=== PATIENT | female | born 1940 | race Caucasian/White ===

== ENCOUNTER → 2017-05-07 | Outpatient (CLI) | payer MEDICARE, BC ==
--- NOTE | 2017-05-07 17:17 | US ---
EXAMINATION TYPE: US thyroid st tissue head/neck DATE OF EXAM: 05/07/2017 COMPARISON: NONE CLINICAL HISTORY: R10.13 Dysphagia. Dysphagia GLAND SIZE: Right Lobe: 4.8 x 1.7 x 1.8 cm Overall Parenchyma: heterogenous Left Lobe: 4.6 x 1.1 x 1.5 cm Overall Parenchyma: heterogeneous Isthmus Thickness: cm NODULES RIGHT: # of nodules measured on right: 1 1. 1.2 X .7 x .8 cm hypoechoic mixed nodule at the mid pole with well-defined margins;. This nodul e is wider than tall and shows intranodular vascularity. LEFT: # of nodules measured on left: ISTHMUS: # of nodules measured in the isthmus: 0 1. X x cm nodule at the pole with margins; . This nodule is and shows . Prior size: x x cm Bilateral neck scanned, no evidence of lymphadenopathy. Bilateral nodules seen measured largest on the right lobe. Left lobe nodule <1cm. IMPRESSION: The exam shows 2 complex cysts in the right thyroid lobe in the largest measures 12 x 7 mm. There is heterogeneity in both thyroid lobes. There are hypoechoic nodules in the left thyroid lobe that measu re up to 4 mm. There is no dominant thyroid mass. I have low suspicion of malignancy.
== END | disposition home or self-care (01) ==
LOC: RADUSWWP 16:39
PROVIDERS: ATTEND Family Medicine
DX: E04.2 Nontoxic multinodular goiter (principal)
CPT/HCPCS: 76536

== ENCOUNTER → 2017-08-27 | Outpatient (CLI) | payer MEDICARE, BC | END | disposition home or self-care (01) | LOC: LABWHC1 14:47 | PROVIDERS: ATTEND Otolaryngology | DX: E04.1 Nontoxic single thyroid nodule (principal) | CPT/HCPCS: 36415; 86376; 86800 ==

== ENCOUNTER → 2018-03-05 | Outpatient (CLI) | payer MEDICARE, BC ==
--- NOTE | 2018-03-05 14:06 | US ---
EXAMINATION TYPE: US thyroid st tissue head/neck DATE OF EXAM: 03/05/2018 COMPARISON: US 09-03-2017 CLINICAL HISTORY: E04.1 Thyroid Nodule. Follow up thyroid nodules GLAND SIZE: Right Lobe: 4.9 x 1.4 x 1.7 cm Overall Parenchyma: heterogenous Left Lobe: 4.2 x 1.4 x 1.5 cm Overall Parenchyma: heterogeneous Isthmus Thickness: 0.2 cm NODULES RIGHT: # of nodules measured on right: 3 1. 1.4 X 0.9 x 0.9 cm hypoechoic mixed nodule at the mid pole with well-defined margins. This nodul e is taller than wide and shows intranodular vascularity. 2. 1.1 X 0.9 x 0.7 cm hypoechoic mixed nodule at the mid pole with well-defined margins. This nodule is taller than wide and shows intranodular vascularity. 3. 0.7 X 0.4 x 0.7 cm hypoechoic mixed nodule at the lower pole with well-defined margins. This nodu le is wider than tall and shows no intranodular vascularity. Prior size: 0.5 x 0.4 x 0.3 cm LEFT: # of nodules measured on left: 2 1. 0.5 X 0.4 x 0.5 cm hypoechoic mixed nodule at the mid pole with well-defined margins. This nodul e is wider than tall and shows no intranodular vascularity. 2. 0.5 X 0.4 x 0.5 cm hypoechoic solid nodule at the mid pole with well-defined margins. This nodule is wider than tall and shows intranodular vascularity. ISTHMUS: # of nodules measured in the isthmus: 0 Bilateral neck scanned, no evidence of lymphadenopathy. Heterogeneous multinodular normal-sized thyroid is redemonstrated without significant interval change accounting for technical change. IMPRESSION: Overall stable findings, heterogeneous multinodular normal-sized thyroid gland redemonstrated.
== END | disposition home or self-care (01) ==
LOC: RADUSWWP 13:09
PROVIDERS: ATTEND Otolaryngology
DX: E04.2 Nontoxic multinodular goiter (principal)
CPT/HCPCS: 76536

== ENCOUNTER → 2018-06-23 | Outpatient (CLI) | payer MEDICARE, BC ==
--- NOTE | 2018-06-23 16:04 | US ---
EXAMINATION TYPE: US carotid duplex BILAT DATE OF EXAM: 06/23/2018 COMPARISON: NONE CLINICAL HISTORY: R94.31 Abnormal EKG,. EXAM MEASUREMENTS: RIGHT: Peak Systolic Velocity (PSV) cm/sec ----- Right CCA: 59.0 ----- Right ICA: 101.4 ----- Right ECA: 55.4 ICA/CCA ratio: 1.7 RIGHT: End Diastole cm/sec ----- Right CCA: 15.4 ----- Right ICA: 38.0 ----- Right ECA: 6.8 LEFT: Peak Systolic Velocity (PSV) cm/sec ----- Left CCA: 57.3 ----- Left ICA: 96.6 ----- Left ECA: 45.7 ICA/CCA ratio: 1.7 LEFT: End Diastole cm/sec ----- Left CCA: 17.0 ----- Left ICA: 12.1 ----- Left ECA: 14.6 VERTEBRALS (direction of flow): Right Vertebral: Antegrade Left Vertebral: Antegrade Rhythm: Normal No significant velocity elevations, mild atherosclerotic changes. Grayscale, color Doppler, spectral Doppler imaging performed of the carotid arteries. IMPRESSION: No hemodynamic significant stenosis of the proximal internal carotid arteries bilaterall y by Doppler criteria, an indirect measurement of carotid stenosis
--- NOTE | 2018-06-25 12:08 | ECHOF ---
Referral Reason:R94.31 Abnormal EKG, MEASUREMENTS -------- HEIGHT: 152.4 cm WEIGHT: 52.2 kg BP: RVIDd: 2.5 cm (< 3.3) IVSd: 0.8 cm (0.6 - 1.1) LVIDd: 3.8 cm (3.9 - 5.3) LVPWd: 0.8 cm (0.6 - 1.1) IVSs: 1.1 cm LVIDs: 2.7 cm LVPWs: 1.2 cm LAESV Index (A-L): 34.30 ml/m Ao Diam: 3.0 cm (2.0 - 3.7) AV Cusp: 1.4 cm (1.5 - 2.6) LA Diam: 3.7 cm (2.7 - 3.8) MV EXCURSION: 14.382 mm (> 18.000) MV EF SLOPE: 85 mm/s (70 - 150) EPSS: 0.2 cm MV E Hayden: 1.07 m/s MV DecT: 201 ms MV A Hayden: 1.27 m/s MV E/A Ratio: 0.84 RAP: 5.00 mmHg RVSP: 42.51 mmHg FINDINGS -------- Sinus rhythm. This was a technically good study. Pt. Has Breast inplants The left ventricular size is normal. Left ventricular wall thickness is normal. Overall left vent ricular systolic function is normal with, an EF between 55 - 60 %. The right ventricle is normal in size and function. LA is moderately dilated 34-39 ml/m2 RA appears enlarged. Aortic valve is trileaflet and is mildly thickened. There is no evidence of aortic regurgitation. There is no evidence of aortic stenosis. The mitral valve leaflets are mildly thickened. Mild mitral annular calcification present. Mild m itral regurgitation is present. [id number] tricuspid regurgitation present. There is mild pulmonary hypertension. The right ventricular systolic pressure, as measured by Doppler, is 42.51mmHg. The pulmonic valve was not well visualized. The aortic root size is normal. Normal inferior vena cava with normal inspiratory collapse consistent with estimated right atrial pre ssure of 5 mmHg. There is no pericardial effusion. CONCLUSIONS -------- 1. Sinus rhythm. 2. This was a technically good study. 3. Pt. Has Breast inplants 4. The left ventricular size is normal. 5. Left ventricular wall thickness is normal. 6. Overall left ventricular systolic function is normal with, an EF between 55 - 60 %. 7. LA is moderately dilated 34-39 ml/m2 8. RA appears enlarged. 9. Aortic valve is trileaflet and is mildly thickened. 10. The mitral valve leaflets are mildly thickened. 11. Mild mitral annular calcification present. 12. Mild mitral regurgitation is present. 13. [id number]-[id number] tricuspid regurgitation present. 14. There is mild pulmonary hypertension. 15. The right ventricular systolic pressure, as measured by Doppler, is 42.51mmHg. 16. The pulmonic valve was not well visualized. 17. The aortic root size is normal. 18. There is no pericardial effusion. LAYOUT ARTIST: Sunil Garcia RDCS
== END | disposition home or self-care (01) ==
LOC: RADECHMAIN 14:40
PROVIDERS: ATTEND Family Medicine
DX: R09.89 Other specified symptoms and signs involving the circulatory and respiratory systems (principal); R94.31 Abnormal electrocardiogram [ECG] [EKG]
CPT/HCPCS: 93306; 93880

== ENCOUNTER → 2018-08-26 | Outpatient (CLI) | payer MEDICARE, BC ==
--- NOTE | 2018-08-26 15:22 | US ---
EXAMINATION TYPE: US thyroid st tissue head/neck DATE OF EXAM: 08/26/2018 COMPARISON: 02/2018 CLINICAL HISTORY: E04.1 Thyroid Nodule. GLAND SIZE: Right Lobe: 4.5 x 1.3 x 1.8 cm Overall Parenchyma: heterogenous Left Lobe: 4.3 x1.0 x 1.5 cm Overall Parenchyma: heterogeneous Isthmus Thickness: 0.2 cm NODULES RIGHT: # of nodules measured on right: 3 1. 1.0 X 0.8 x 0.5 cm mixed nodule at the mid pole with well-defined margins; . This nodule is soni ler than wide and shows intranodular vascularity. Prior size: 1.4 x 0.9 x 0.8 cm 2. 0.5 X 0.6 x 0.4 cm mixed nodule at the mid pole with well-defined margins; . This nodule is tall er than wide and shows intranodular vascularity. Prior size: 1.1 x 0.9 x 0.7 cm 3. 0.7 X 0.6 x 0.3 cm mixed nodule at the lower pole with well-defined margins; . This nodule is wi alem than tall and shows no intranodular vascularity. Prior size: 0.5 x 0.4 x 0.3 cm LEFT: # of nodules measured on left: 2 1. 0.5 X 0.4 x 0.4 cm mixed nodule at the mid pole with well-defined margins; . This nodule is wid er than tall and shows no intranodular vascularity. Prior size: 0.5 x 0.4 x 0.5 cm 2. 0.6 X 0.5 x 0.8 cm solid nodule at the upper pole with well-defined margins; . This nodule is wi alem than tall and shows intranodular vascularity. Prior size: 0.5 x 0.4 x 0.5 cm ISTHMUS: # of nodules measured in the isthmus: 0 Bilateral neck scanned, no evidence of lymphadenopathy. Heterogeneous normal-sized thyroid with scattered small nodules redemonstrated. No significant interv al change. IMPRESSION: Overall stable findings, no new suspicious greater than 1 cm nodule seen.
== END | disposition home or self-care (01) ==
LOC: RADUSWWP 14:10
PROVIDERS: ATTEND Otolaryngology
DX: E04.2 Nontoxic multinodular goiter (principal)
CPT/HCPCS: 76536

== ENCOUNTER → 2019-02-23 | Outpatient (CLI) | payer MEDICARE, BC ==
--- NOTE | 2019-02-23 10:37 | XR ---
Bilateral hips HISTORY: Pain 2 views of each hip submitted on a total of 4 images There may be some chondrocalcinosis present. Alignment, joint spaces, bone mineralization are maintai sherry. No fracture or dislocation. 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
== END | disposition home or self-care (01) ==
LOC: RADXRMAIN 09:58
PROVIDERS: ATTEND Family Medicine
DX: M25.559 Pain in unspecified hip (principal)
CPT/HCPCS: 73521

== ENCOUNTER → 2019-03-08 | Outpatient (CLI) | payer MEDICARE, BC ==
--- NOTE | 2019-03-08 12:03 | US ---
EXAMINATION TYPE: US thyroid st tissue head/neck DATE OF EXAM: 03/08/2019 COMPARISON: NONE CLINICAL HISTORY: E04.1 Thyroid Nodule. GLAND SIZE: Right Lobe: 4.1 x 1.3 x 1.9 cm Overall Parenchyma: heterogenous Left Lobe: 4.1 x 1.1 x 1.5 cm Overall Parenchyma: heterogeneous Isthmus Thickness: 0.2 cm NODULES RIGHT: # of nodules measured on right: 1. 0.9 X 0.5 x 0.7 cm anechoic cystic nodule at the mid pole with well-defined margins. This nodul e is wider than tall and shows no intranodular vascularity. Prior size: 1.0 x 0.8 x 0.5 cm 2. 0.5 X 0.5 x 0.6 cm isoechoic mixed nodule at the mid pole with well-defined margins. This nodule is wider than tall and shows no intranodular vascularity. Prior size: 0.5 x 0.6 x 0.4 cm 3. 0.9 X 0.5 x 0.5 cm isoechoic mixed nodule at the lower pole with poorly defined margins. This no dule is wider than tall and shows no intranodular vascularity. Prior size: 0.7 x 0.6 x 0.3 cm LEFT: # of nodules measured on left: 2 1. 0.5 X 0.3 x 0.5 cm anechoic mixed nodule at the mid pole with well-defined margins. This nodule is wider than tall and shows no intranodular vascularity. Prior size: 0.5 x 0.4 x 0.5 cm 2. 0.5 X 0.3 x 0.4 cm echogenic solid nodule at the upper pole with well-defined margins . This nod ule is wider than tall and shows intranodular vascularity. Prior size: 0.6 x 0.5 x 0.8 cm ISTHMUS: # of nodules measured in the isthmus: 0 Bilateral neck scanned, no evidence of lymphadenopathy. IMPRESSION: Nonspecific thyroid nodularity.
== END | disposition home or self-care (01) ==
LOC: RADUSWWP 10:39
PROVIDERS: ATTEND Otolaryngology
DX: E04.2 Nontoxic multinodular goiter (principal)
CPT/HCPCS: 76536

== ENCOUNTER → 2020-05-28 | Outpatient (CLI) | payer MEDICARE, BC ==
--- NOTE | 2020-05-28 22:34 | US ---
EXAMINATION TYPE: US thyroid st tissue head/neck DATE OF EXAM: 05/28/2020 COMPARISON: US 2019 CLINICAL HISTORY: E04.1 Thyroid nodule. Thyroid nodule. Hx nodules. GLAND SIZE: Right Lobe: 5.0 x 1.8 x 1.4 cm Overall Parenchyma: heterogenous Left Lobe: 4.9 x 1.6 x 1.5 cm Overall Parenchyma: heterogeneous Isthmus Thickness: 0.23 cm NODULES RIGHT: # of nodules measured on right: 5 1. 0.8 X 0.7 x 0.7 cm anechoic cystic nodule at the mid pole with well-defined margins. This nodul e is as tall as it is wide and shows no intranodular vascularity. Prior size: prior exam does not correspond in appearance 2. 1.3 x 0.9 x 0.8 cm anechoic cystic nodule at the mid pole with well-defined margins. This nodule is wider than tall and shows no intranodular vascularity. Prior size: 0.9 x 0.5 x 0.7 cm 3. 0.6 X 0.5 x 0.4 cm hypoechoic mixed nodule at the upper pole with well-defined margins. This nod ule is wider than tall and shows no intranodular vascularity. Prior size: no prior 4. 1.0 X 0.8 x 0.5 cm hypoechoic mixed nodule at the lower pole with poorly defined margins. This n odule is wider than tall and shows intranodular vascularity. Prior size: does not correspond 5. 0.6 X 0.4 x 0.4 cm hypoechoic solid nodule at the lower pole with well-defined margins. This no dule is as wide as it is tall and shows no intranodular vascularity. Prior size: does not correspond LEFT: # of nodules measured on left: 2 1. 0.8 X 0.6 x 0.5 cm isoechoic solid nodule at the upper pole with poorly defined margins. This n odule is wider than tall and shows peripheral vascularity. Prior size: 0.5 x 0.3 x 0.5 cm 2. 0.5 X 0.5 x 0.4 cm mixed nodule at the mid pole with well-defined margins . This nodule is wider than tall and shows intranodular vascularity. Prior size: 0.5 x 0.3 x 0.4 cm ISTHMUS: # of nodules measured in the isthmus: 0 Bilateral neck scanned, no evidence of lymphadenopathy. IMPRESSION: 1. There appears to be some increasing nodularity, some of which has measurements up to 1 cm which is not clearly evident on the previous examination. 2. Multinodular goiter with multiple additional subcentimeter nodules similar to previous exam
== END | disposition home or self-care (01) ==
LOC: RADUSWWP 16:44
PROVIDERS: ATTEND Otolaryngology
DX: E04.2 Nontoxic multinodular goiter (principal)
CPT/HCPCS: 76536

== ENCOUNTER → 2020-08-27 | Outpatient (CLI) | payer MEDICARE, BC ==
--- NOTE | 2020-08-27 19:15 | BD ---
EXAMINATION TYPE: Axial Bone Density DATE OF EXAM: 08/27/2020 COMPARISON: NONE CLINICAL HISTORY: Post menopausal screening Height: 59.5 IN Weight: 118 LBS FRAX RISK QUESTIONS: Secondary Osteoporosis: 3. Menopause before 45: YES PARTIAL HYST AGE 33 Rheumatoid Arthritis: YES RISK FACTORS HISTORY OF: Active: YES Postmenopausal woman: PARTIAL HYST AGE 33 Lost more than 2 inches in height since high school: YES 3" MEDICATIONS: Additional Medications: CALCIUM, VIT D, SIMVASTATIN, ORENCIA INFUSIONS FOR RA, METHOTREXATE Additional History: BREAST CANCER WITH RADIATION EXAM MEASUREMENTS: Bone mineral densitometry was performed using the [employer] System. Bone mineral density as measured about the Lumbar spine is: ----- L1-L4(G/cm2): 1.237 T Score Values are as follows: ----- L2: 1.0 ----- L3: -0.2 ----- L4: 0.0 ----- L1-L4: 0.5 Bone mineral density BASELINE Bone mineral density about the R hip (g/cm2): 0.711 Bone mineral density about the L hip (g/cm2): 0.781 T Score values are as follows: -----R Neck: -2.4 -----L Neck: -1.9 -----R Total: -1.4 -----L Total: -1.3 Bone mineral density BASELINE IMPRESSION: Osteopenia (T Score between -2.5 and -1). Note that measurements border on osteoporosis at the right hip. There is slightly increased risk of fracture and the patient may be considered for treatment. Re-Screen 2-5 years. NOTE: T-SCORE=SD OF THE YOUNG ADULT MEAN.
== END | disposition home or self-care (01) ==
LOC: RADBDWWP 09:30
PROVIDERS: ATTEND Family Medicine
DX: M85.80 Other specified disorders of bone density and structure, unspecified site (principal)
CPT/HCPCS: 77080

== ENCOUNTER → 2020-09-07 | Outpatient (CLI) | payer MEDICARE, BC ==
--- NOTE | 2020-09-07 11:47 | US ---
EXAMINATION TYPE: US carotid duplex BILAT DATE OF EXAM: 09/07/2020 COMPARISON: 06/23/2018 CLINICAL HISTORY: 79-year-old female R09.89 Carotid Bruit. Patient states doctor heard a bruit. No HT N. No history of TIA or stroke. Family hx of stroke. TECHNIQUE: Carotid duplex ultrasound examination. Indirect Doppler criteria was utilized. FINDINGS: EXAM MEASUREMENTS: RIGHT: Peak Systolic Velocity (PSV) cm/sec ----- Right CCA: 61.8 ----- Right ICA: 103.0 ----- Right ECA: 77.4 ICA/CCA ratio: 1.7 RIGHT: End Diastole cm/sec ----- Right CCA: 14.0 ----- Right ICA: 37.1 ----- Right ECA: 9.1 LEFT: Peak Systolic Velocity (PSV) cm/sec ----- Left CCA: 60.7 ----- Left ICA: 103.0 ----- Left ECA: 68.8 ICA/CCA ratio: 1.7 LEFT: End Diastole cm/sec ----- Left CCA: 47.3 ----- Left ICA: 28.0 ----- Left ECA: 8.1 VERTEBRALS (direction of flow): Right Vertebral: Antegrade Left Vertebral: Antegrade Rhythm: Normal Foreman Or Supervisor And Operator notes: No wall thickening. No plaque visualized. No elevated velocities. No significan t stenosis. IMPRESSION: No hemodynamically significant internal carotid artery stenosis on either side. Criteria for Assigning % of Stenosis / Diameter reduction (Estimation based on the indirect measurements of the internal carotid artery velocities (ICA PSV). 1. Normal (no stenosis)=ICA PSV < 125 cm/s: ratio < 2.0: ICA EDV<40 cm/s. 2. Less than 50% stenosis=ICA PSV < 125 cm/s: ratio < 2.0: ICA EDV<40 cm/s. 3. 50 to 69% stenosis=ICA PSV of 125 to 230 cm/s: ration 2.0 ? 4.0: ICA EDV 40-100 cm/s. 4. Greater than 70% stenosis to near occlusion= ICA PSV > 230 cm/s: ratio > 4.0: ICA EDV > 100 cm/s. 5. Near occlusion= ICA PSV velocities may be low or undetectable: variable ratio and ICA EDV. 6. Total occlusion=unable to detect flow.
== END | disposition home or self-care (01) ==
LOC: RADUSWWP 10:36
PROVIDERS: ATTEND Family Medicine
DX: R09.89 Other specified symptoms and signs involving the circulatory and respiratory systems (principal)
CPT/HCPCS: 93880

== ENCOUNTER → 2020-11-26 | Outpatient (CLI) | payer MEDICARE, BC ==
--- NOTE | 2020-11-26 13:07 | US ---
EXAMINATION TYPE: US thyroid st tissue head/neck DATE OF EXAM: 11/26/2020 COMPARISON: 05/28/2020 CLINICAL HISTORY: 80-year-old female E04.1 Thyroid nodule. Follow up thyroid nodules Technique: Multiple sonographic images of the thyroid gland are obtained. FINDINGS: GLAND SIZE: Right Lobe: 5.4 x 1.9 x 1.9 cm Overall Parenchyma: heterogenous Left Lobe: 4.7 x 1.4 x 1.7 cm Overall Parenchyma: heterogeneous Isthmus Thickness: 0.4 cm NODULES RIGHT: # of nodules measured on right: 2 1. 1.1 X 0.8 x 0.8 cm mixed cystic and solid, anechoic nodule, which is wider than tall, with elsie h margins, without echogenic foci. Prior size: 1.3 x 0.8 x 0.9 cm 2. 1.2 X 0.8 x 0.7 cm mixed cystic and solid, hypoechoic nodule, which is wider than tall, with lob ulated or irregular margins, without echogenic foci. Prior size: 0.8 x 0.7 x 0.7 cm LEFT: # of nodules measured on left: 2 1. 0.5 X 0.4 x 0.5 cm mixed cystic and solid, hypoechoic nodule, at the midpole which is wider than tall, with smooth margins, without echogenic foci. Prior size: 0.5 x 0.4 x 0.5 cm 2. 0.5 X 0.3 x 0.4 cm solid , isoechoic nodule, which is wider than tall, with smooth margins, with out echogenic foci. Medially at the upper to mid pole Prior size: 8 x 6 x 5 mm ISTHMUS: # of nodules measured in the isthmus: 0 Yeast Washer notes: Multiple subcentimeter nodules noted bilaterally. Bilateral neck scanned, no evidence of lymphadenopathy. IMPRESSION: 1. Possible multinodular goiter. 2. A mixed nodule on the right is slightly larger at 1.2 x 0.8 cm versus 0.8 x 0.7 cm, previously. Co nsider additional follow-up.
== END | disposition home or self-care (01) ==
LOC: RADUSWWP 12:06
PROVIDERS: ATTEND Otolaryngology
DX: E04.1 Nontoxic single thyroid nodule (principal)
CPT/HCPCS: 76536

== ENCOUNTER → 2020-12-13 | Outpatient (CLI) | payer MEDICARE, BC ==
--- NOTE | 2020-12-13 10:06 | CT ---
EXAMINATION TYPE: CT brain wo con DATE OF EXAM: 12/13/2020 COMPARISON: None INDICATION: ORDOÑEZ at back of head DLP: 993 mGycm, Automated exposure control for dose reduction was used. CONTRAST: None CT of the brain is performed utilizing 3 mm thick sections through the posterior fossa and 3 mm thick sections through the remaining calvarium. Study is performed within 24 hours of arrival to the hosp [facility]. No abnormal hyperdensity is present to suggest an acute intracranial hemorrhage. No mass lesion is evident. No acute infarcts are evident. There is mild periventricular white matter hypodensity, likely on the basis of chronic white matter ischemic changes. Ventricles and sulci are appropriate for the patient age. Paranasal sinuses and mastoid air cells within the [id number] are clear. IMPRESSIONS: 1. Mild chronic appearing periventricular white matter ischemic change
--- NOTE | 2020-12-13 13:41 | CT ---
EXAMINATION TYPE: CT soft tissue neck wo con DATE OF EXAM: 12/13/2020 COMPARISON: None HISTORY: ORDOÑEZ at back of head CT DLP: 256.2 mGycm CONTRAST: Patient injected with 0 mL of Isovue 300. TECHNIQUE: Axial images at 3 mm thick sections. Reconstructed images in the coronal plane and sagitt al plane are reviewed. FINDINGS: Limited CT sections are obtained the lung apices. The lung apices appear clear. Couple sma ll hypodense nodules are within the superior poles bilaterally. CT neck: The torus tubarius and fossa of Rosenmuller are normal. Expense Clerk spaces are normal. Para nasal sinuses and mastoid air cells are clear. Left mastoid air cells are underpneumatized. Parotid glands appear normal and symmetrical. Submandibular glands, are normal. Parapharyngeal spac es are normal. No suspicious adenopathy is evident. Scattered small lymph nodes are present bilatera lly within the posterior triangles There may be some mild fullness of the right tonsillar pillar. Dis crete underlying mass is not identified. The hypopharynx appears within normal limits. Vocal cord level appear symmetrical. Some artifact along the mandible is evident. Osseous structures are normal. Degenerative disc changes are within the cervical spine. Prevertebral space and posterior spinal normal. IMPRESSIONS: 1. Degenerative disc changes within the cervical spine. 2. There may be some mild fullness of the right tonsillar pillar no suspicious underlying mass is anish ntified.
== END | disposition home or self-care (01) ==
LOC: RADCTMAIN 06:37
PROVIDERS: ATTEND Family Medicine
DX: I67.82 Cerebral ischemia (principal); R90.82 White matter disease, unspecified; M47.812 Spondylosis without myelopathy or radiculopathy, cervical region; R51.9 Headache, unspecified
CPT/HCPCS: 70450; 70490

== ENCOUNTER → 2021-06-05 | Outpatient (CLI) | payer MEDICARE, BC ==
--- NOTE | 2021-06-05 09:20 | US ---
EXAMINATION TYPE: US thyroid st tissue head/neck DATE OF EXAM: 06/05/2021 COMPARISON: 11/26/2020 CLINICAL HISTORY: E04.1 Thyroid Nodule. GLAND SIZE: Right Lobe: 5.3 x 2.0 x 1.6 cm Overall Parenchyma: heterogenous Left Lobe: 4.2 x 1.1 x 1.5 cm Overall Parenchyma: heterogeneous Isthmus Thickness: 0.2 cm NODULES RIGHT: # of nodules measured on right: 2 1. 1.3 X 0.8 x 1.0 cm, mid , mixed cystic and solid, anechoic nodule, which is wider than tall, wit h smooth margins, without echogenic foci. Prior size: 1.1 x 0.8 x 0.8 cm 2. 1.1 X 0.7 x 1.1 cm, mid , mixed cystic and solid, anechoic nodule, which is wider than tall, wit h smooth margins, without echogenic foci. Prior size: 1.2 x 0.8 x 0.7 cm LEFT: # of nodules measured on left: 3 1. 0.6 X 0.4 x 0.6 cm, upper mid, solid or almost completely solid, isoechoic nodule, which is wide r than tall, with smooth margins, without echogenic foci. Prior size: Not previously visualized 2. 0.6 X 0.4 x 0.4 cm, mid , mixed cystic and solid, hyperechoic nodule, which is wider than tall, with smooth margins, without echogenic foci. Prior size: 0.5 x 0.4 x 0.5 cm 3. 0.5 X 0.3 x 0.4 cm, mid, solid or almost completely solid, isoechoic nodule, which is wider than tall, with smooth margins, without echogenic foci. Prior size: 0.5 x 0.3 x 0.4 cm ISTHMUS: # of nodules measured in the isthmus: 0 Bilateral neck scanned, no evidence of lymphadenopathy. IMPRESSION: Multiple bilateral thyroid nodules, as described. 2017 ACR TI-RADS LEVEL: TR-RADS 4 - Moderately Suspicious: Follow if > 1 cm, FNA if > 1.5 cm *Highest TI-RADS level nodule reported
== END | disposition home or self-care (01) ==
LOC: RADUSWWP 07:57
PROVIDERS: ATTEND Otolaryngology
DX: E04.2 Nontoxic multinodular goiter (principal)
CPT/HCPCS: 76536

== ENCOUNTER → 2021-12-18 | Outpatient (CLI) | payer MEDICARE, BC ==
--- NOTE | 2021-12-18 12:29 | US ---
EXAMINATION TYPE: US thyroid st tissue head/neck DATE OF EXAM: 12/18/2021 COMPARISON: US CLINICAL HISTORY: E04.1 NONTOXIC SINGLE THYROID NODULE. F/U Nodules GLAND SIZE: Right Lobe: 4.9 x 1.6 x 1.7 cm Overall Parenchyma: heterogenous Left Lobe: 4.2 x 1.4 x 1.4 cm Overall Parenchyma: heterogeneous Isthmus Thickness: 0.2 cm NODULES RIGHT: # of nodules measured on right: 2 1. 1.3 X 0.8 x 1.0 cm, mid, cystic or almost completely cystic, nodule, which is wider than tall, w ith smooth margins, without echogenic foci. Prior size: 1.3 x 0.8 x 1.0 cm 2. 1.1 X 0.6 x 0.8 cm, mid, mixed cystic and solid, hypoechoic nodule, which is wider than tall, wi th smooth margins, without echogenic foci. Prior size: 1.1 x 0.7 x 1.1 cm LEFT: # of nodules measured on left: 3 1. 0.7 X 0.5 x 0.7 cm, upper, solid or almost completely solid, isoechoic nodule, which is wider th an tall, with smooth margins, without echogenic foci. Prior size: 0.6 x 0.4 x 0.6 cm 2. 0.5 X 0.4 x 0.5 cm, mid, mixed cystic and solid, hypoechoic nodule, which is wider than tall, w ith smooth margins, without echogenic foci. Prior size: 0.6 x 0.4 x 0.4 cm 3. 0.5 X 0.3 x 0.4 cm, mid, solid or almost completely solid, isoechoic nodule, which is wider than tall, with smooth margins, without echogenic foci. Prior size: 0.5 x 0.3 x 0.4 cm ISTHMUS: # of nodules measured in the isthmus: 0 Bilateral neck scanned, no evidence of lymphadenopathy. Stable nodules bilaterally. IMPRESSION: Stable glandular heterogeneity and nonspecific thyroid nodules.
== END | disposition home or self-care (01) ==
LOC: RADUSWWP 11:52
PROVIDERS: ATTEND Otolaryngology
DX: E04.2 Nontoxic multinodular goiter (principal)
CPT/HCPCS: 76536

== ENCOUNTER → 2022-05-16 | Outpatient (CLI) | payer MEDICARE, BC ==
--- NOTE | 2022-05-21 13:42 | MM ---
Reason for Exam: Hx of breast cancer, mastectomy. Last mammogram was performed 2 year(s) and 1 month(s) ago. Patient History: Breast cancer, left, age 58. [employer]azi [employer]. Previous chest radiation therapy at age 58. 2001, Mastectomy on the Left side. Sister had breast cancer, age 37. Sister had breast cancer, age 77. Prior Study Comparison: 04/19/2019 Right MG work up ramakrishna w/imp w/CAD R - 2, [facility]. 04/20/2020 Right MG 3D diag mammo w/cad RT - 2, [facility]. Tissue Density: Right: The breast tissue is heterogeneously dense. This may lower the sensitivity of mammography. Findings: Analyzed By CAD. No suspicious spiculated or lobulated mass cluster microcalcifications or architectural distortion is evident in the right breast. There is been a prior left mastectomy. No significant interval changes are evident. Overall Assessment: Benign, BI-RAD 2 Management: Screening Mammogram of the right breast in 1 year. A clinical breast exam by your physician is recommended on an annual basis and results should be correlated with mammographic findings. This exam should not preclude additional follow-up of suspicious palpable abnormalities. Results were given to the patient verbally at the time of exam. Electronically signed and approved by: Davidson Carreno D.O. Radiologis
== END | disposition home or self-care (01) ==
LOC: RADMAMWWP 12:37
PROVIDERS: ATTEND Internal Medicine
DX: R92.8 Other abnormal and inconclusive findings on diagnostic imaging of breast (principal); Z80.3 Family history of malignant neoplasm of breast
CPT/HCPCS: 77065; G0279; 77061

== ENCOUNTER → 2022-05-21 | Outpatient (CLI) | payer MEDICARE, BC ==
--- NOTE | 2022-05-21 12:25 | BD ---
EXAMINATION TYPE: Axial Bone Density DATE OF EXAM: 05/21/2022 COMPARISON: DEXA 08/27/2020. CLINICAL HISTORY: 81 years year old Female. ICD-10 CODE: C50.919 PERSONAL HX OF CANCER,M81.0 OSTEOP OROSIS Height: 59 Weight: 118 FRAX RISK QUESTIONS: Alcohol (3 or more units per day): NO Family History (Parent hip fracture NO History of Fracture in Adulthood: NO Secondary Osteoporosis: 1. Type 1 Diabetes: NO 2. Hyperthyroidism: NO 3. Menopause before 45: YES 4. Malnutrition: NO 5. Chronic liver disease: NO Rheumatoid Arthritis: YES Current Tobacco Use: NO RISK FACTORS HISTORY OF: Hip Fracture (Right/Left): NO Spine Fracture: NO History of Wrist Fracture: NO Surgery to Spine/Hip(right/left)/Wrist (right/left): BILATERAL CARPAL TUNNEL When: 2009 Family History of Osteoporosis: NO Active: YES Diet low in dairy products/other sources of calcium: NO Postmenopausal woman: YES Take estrogen and/or progesterone medications: NO Lost more than 2 inches in height since high school: YES Frequent falls: NO Poor Health: NO Hyperparathyroidism: NO Adrenal Insufficiency: NO MEDICATIONS: Prednisone or other steroids: NO Thyroid Medications: NO Osteoporosis Medications: NO Additional Medications: CALCIUM, CHOLESTEROL MEDS, ORENCIA INFUSIONS, VIT D, MULTI VIT, EXAM MEASUREMENTS: Bone mineral densitometry was performed using the [employer]. Bone mineral density as measured about the Lumbar spine is: ----- L1-L4(G/cm2): 1.179 T Score Values are as follows: ----- L1: 0.4 ----- L2: 0.4 ----- L3: -0.9 ----- L4: -0.1 ----- L1-L4: 0.0 Bone mineral density has: DECREASED 4.1 % since study of: 08/27/2020 Bone mineral density about the R hip (g/cm2): 0.676 Bone mineral density about the L hip (g/cm2): 0.770 T Score values are as follows: -----R Neck: -2.6 -----L Neck: -1.9 -----R Total: -1.7 -----L Total: -1.4 Bone mineral density has: DECREASED 3.2 % since study of: 08/27/2020 FRAX%s: The graph provided illustrates a 25.5% chance for a major osteoporotic fx and a 10.6% chance for the hips probability for fx in 10 years time. IMPRESSION: Osteoporosis (T Score less than -2.5). There is increased fracture risk and therapy is usually indicated based on age. Re-Screen 1-2 years. NOTE: T-SCORE=SD OF THE YOUNG ADULT MEAN.
== END | disposition home or self-care (01) ==
LOC: RADBDWWP 07:05
PROVIDERS: ATTEND Internal Medicine
DX: M81.0 Age-related osteoporosis without current pathological fracture (principal)
CPT/HCPCS: 77080

== ENCOUNTER → 2022-06-18 | Outpatient (CLI) | payer MEDICARE, BC ==
[~2022-06-18] MED LIST: DENOSUMAB 60 MG/ML 1 ML SYRINGE SQ NR
[2022-06-18 09:17] VITALS: BP 181/82; PULSE 79; RESP 18; TEMP 98.1
== END ==
LOC: PROCWHC3 08:52
PROVIDERS: ATTEND Internal Medicine
DX: M81.0 Age-related osteoporosis without current pathological fracture (principal)
CPT/HCPCS: 96372; J0897

== ENCOUNTER → 2022-07-22 | Outpatient (CLI) | payer MEDICARE, BC ==
--- NOTE | 2022-07-22 12:13 | MR ---
EXAMINATION TYPE: MR shoulder RT wo con DATE OF EXAM: 07/22/2022 COMPARISON: None HISTORY: Right shoulder pain, RA, hx fall. TECHNIQUE: Multiplanar, multisequence imaging of the right shoulder is performed without contrast. FINDINGS: Rotator Cuff: Abnormal thickening is present, increased signal is present within the tendon, partial full-thickness tear is suspected coronal image 11 series 401 supraspinatus tendon Acromioclavicular Joint: Arthropathy changes present, hypertrophic changes are noted, there is fluid signal in the subacromial subdeltoid bursa. Distal acromial spur is present. Glenohumeral Joint: Intact, marginal spurring suggesting osteoarthritic change Labrum: The labrum shows some increased signal along its anterior margin, difficult to exclude a labr al tear, suspect there may be a sublabral foramen. Biceps Tendon: The long head of biceps is in normal location within bicipital groove, fluid signal is present with along the tendon. Bone marrow signal: Probable reactive marrow signal changes present within the humeral head, there ma y be pseudocyst formation Other: Fluid signal present along the subscapularis musculotendinous junction level IMPRESSION: Partial full-thickness tear the rotator cuff tendon as described, there is change of tendinopathy, co rrelate for impingement. Difficult to exclude a labral tear. There is some fluid signal as described
== END | disposition home or self-care (01) ==
LOC: RADMRIMAIN 09:36
PROVIDERS: ATTEND Nurse Practitioner Family
DX: M75.111 Incomplete rotator cuff tear or rupture of right shoulder, not specified as traumatic (principal)

== ENCOUNTER → 2023-05-20 | Outpatient (CLI) | payer MEDICARE, BC ==
--- NOTE | 2023-05-21 07:33 | MM ---
Reason for Exam: Screening (asymptomatic). Last screening mammogram was performed 12 month(s) ago. Patient History: Breast cancer, left, age 58. Ashkenazi [employer]. Previous chest radiation therapy at age 58. 2001, Mastectomy on the Left side. Sister had breast cancer, age 37. Sister had breast cancer, age 77. Prior Study Comparison: 04/19/2019 Right MG work up ramakrishna w/imp w/CAD R - 2, [facility]. 04/20/2020 Right MG 3D diag mammo w/cad RT - 2, [facility]. 05/16/2022 Right MG 3D diag mammo w/cad RT, [facility]. Tissue Density: The breast tissue is heterogeneously dense. This may lower the sensitivity of mammography. Findings: Analyzed By CAD. There is no suspicious group of microcalcifications or new suspicious mass in the right breast. Benign-appearing calcifications within the right breast. Overall Assessment: Benign, BI-RAD 2 Management: Screening Mammogram of the right breast in 1 year. A clinical breast exam by your physician is recommended on an annual basis and results should be correlated with mammographic findings. Electronically signed and approved by: Oziel Stone D.O.
== END | disposition home or self-care (01) ==
LOC: RADMAMWWP 08:30
PROVIDERS: ATTEND Family Medicine
DX: Z12.31 Encounter for screening mammogram for malignant neoplasm of breast (principal); Z80.3 Family history of malignant neoplasm of breast
CPT/HCPCS: 77067

== ENCOUNTER → 2024-01-13 | Outpatient (CLI) | payer MEDICARE, BC ==
--- NOTE | 2024-01-13 14:45 | US ---
EXAMINATION TYPE: US thyroid st tissue head/neck DATE OF EXAM: 01/13/2024 COMPARISON: 01/12/2023 CLINICAL INDICATION: Female, 83 years old with history of E04.1 thyroid nodule; HX thyroid nodules. P atient not on thyroid medication. GLAND SIZE: Right Lobe: 5.2 x 1.7 x 1.8 cm Overall Parenchyma: heterogenous Left Lobe: 4.9 x 1.6 x 1.6 cm Overall Parenchyma: heterogenous Isthmus Thickness: 0.2 cm NODULES RIGHT: # of nodules measured on right: 3 1. 1.6 X 0.8 x 1.0 cm, mid mid, cystic or almost completely cystic, anechoic nodule, which is wider than tall, with smooth margins, without echogenic foci. TR 2 Prior size: 1.9 x 1.2 x 0.8 cm 2. 0.8 X 0.5 x 0.6 cm, mid medial, mixed cystic and solid, anechoic nodule, which is wider than soni l, with smooth margins, without echogenic foci. Prior size: 1.0 x 0.7 x 0.5 cm 3. 0.6 X 0.5 x 0.5 cm, lower mid, mixed cystic and solid, hypoechoic nodule, which is wider than t all, with smooth margins, without echogenic foci. not previously seen LEFT: # of nodules measured on left: 3 1. 0.7 X 0.6 x 0.6 cm, upper mid, solid or almost completely solid, isoechoic nodule, which is tall er than wide, with smooth margins, without echogenic foci. Prior size: 0.8 x 0.8 x 0.6 cm 2. 0.5 X 0.3 x 0.5 cm, mid mid, cystic or almost completely cystic, anechoic nodule, which is wide r than tall, with smooth margins, without echogenic foci. not previously seen 3. 0.6 X 0.4 x 0.5 cm, lower mid, mixed cystic and solid, anechoic nodule, which is wider than tall , with smooth margins, without echogenic foci. not previously seen Nodules 2 and 3 previously seen on LEFT side not seen today due to heterogeneous echotexture. Diffe rent nodules #2 and #3 measured today. ISTHMUS: # of nodules measured in the isthmus: 0 Bilateral neck scanned, no evidence of lymphadenopathy. IMPRESSION: 1. No suspicious nodules follow-up can be performed as clinically indicated 2017 ACR TI-RADS LEVEL: TR-RADS 2 - Not Suspicious: No FNA *Highest TI-RADS level nodule reported
== END | disposition home or self-care (01) ==
LOC: RADUSWWP 09:13
PROVIDERS: ATTEND Otolaryngology
DX: E04.2 Nontoxic multinodular goiter (principal)
CPT/HCPCS: 76536

== ENCOUNTER → 2024-05-24 | Outpatient (CLI) | payer MEDICARE, BC ==
--- NOTE | 2024-05-27 11:14 | MM ---
Reason for Exam: Screening (asymptomatic). Last screening mammogram was performed 12 month(s) ago. Patient History: Breast cancer, left, age 58. [employer]kenazi [employer]. Previous chest radiation therapy at age 58. 2001, Mastectomy on the Left side. Sister had breast cancer, age 37. Sister had breast cancer, age 77. Prior Study Comparison: 04/20/2020 Right MG 3D diag mammo w/cad RT - 2, [facility]. 05/16/2022 Right MG 3D diag mammo w/cad RT, [facility]. 05/20/2023 Bilateral MG 3D screening mammo w/cad, [facility]. Tissue Density: Right: There are scattered areas of fibroglandular density. Findings: Right breast: There is no suspicious group of microcalcifications or new suspicious mass. Overall Assessment: Negative, BI-RAD 1 Management: Screening Mammogram of both breasts in [address] [facility] will attempt to contact patient to return for supplemental views and ultrasound if indicated. Patient should continue monthly self-breast exams. A clinical breast exam by your physician is recommended on an annual basis. This exam should not preclude additional follow-up of suspicious palpable abnormalities. Note on Shanell scores and lifetime risk: 1. A Shanell score greater than 3% is considered moderate risk. If this is the case, consider specialist referral to assess eligibility for a risk reducing agent. 2. If overall lifetime risk for the development of breast cancer is 20% or higher, the patient may qualify for future screening with alternating mammogram and breast MRI. Electronically signed and approved by: Baldomero Huggins DO
== END | disposition home or self-care (01) ==
LOC: RADBDWWP 08:50
PROVIDERS: ATTEND Family Medicine
DX: Z12.31 Encounter for screening mammogram for malignant neoplasm of breast (principal); M81.0 Age-related osteoporosis without current pathological fracture; Z80.3 Family history of malignant neoplasm of breast
CPT/HCPCS: 77067; 77080

== ENCOUNTER 2024-07-09 14:06 | Emergency (ER) | payer MEDICARE, BC | END 2024-07-09 18:20 | disposition home or self-care (01) | LOC: EC 14:06 | DX: I10 Essential (primary) hypertension (principal) | CPT/HCPCS: 93005; 99284 ==

== ENCOUNTER → 2024-12-02 | Outpatient (CLI) | payer MEDICARE, BC ==
--- NOTE | 2024-12-02 16:28 | US ---
EXAMINATION TYPE: US thyroid st tissue head/neck DATE OF EXAM: 12/02/2024 COMPARISON: numerous priors, most recent: 01/13/24 CLINICAL INDICATION: Female, 84 years old with history of E04.2 NONTOXIC MULTINODULAR GOITER; follow up TECHNIQUE: Grayscale and color Doppler imaging of the thyroid gland. FINDINGS: GLAND SIZE: Right Lobe: 5.2 x 1.7 x 1.5 cm Overall Parenchyma: heterogeneous Left Lobe: 4.6 x 1.6 x 1.2 cm Overall Parenchyma: heterogeneous Isthmus Thickness: 0.17 cm NODULES RIGHT: # of nodules measured on right: 2 1. 1.9 X 1.3 x 1.0 cm, mid medial Prior size: 1.6 x 1.0 x 0.8 cm TIRADS Score: 0 TIRADS Category 1: Benign Composition: Cystic or almost completely cystic (0 points). Recommendation: No FNA 2. 0.9 X 0.6 x 0.6 cm, mid lateral, Prior size: 0.9 x 0.6 x 0.5 cm TIRADS Score: 0 TIRADS Category 1: Benign Composition: Cystic or almost completely cystic (0 points). Recommendation: No FNA LEFT: # of nodules measured on left: 2 1. 0.8 X 0.9 x 0.4 cm, upper mid, Prior size: 0.8 x 0.6 x 0.6 cm TIRADS Score: 3 TIRADS Category 3: Composition: Solid or almost completely solid (2 points). Echogenicity: Hyperechoic or isoechoic (1 point). Shape: Wider than tall (0 points). Margin: Smooth (0 points). Echogenic foci: None or large comet-tail artifacts (0 points) Recommendation: If >2.5cm: FNA; If >1.5cm: Follow up at 1,3,5 years 2. 0.7 X 0.6 x 0.4 cm, mid medial not measured previously TIRADS Score: 4 TIRADS Category 4: Composition: Solid or almost completely solid (2 points). Echogenicity: Hypoechoic (2 points). Shape: Wider than tall (0 points). Margin: Smooth (0 points). Echogenic foci: None or large comet-tail artifacts (0 points) Recommendation: If >1.5cm: FNA; If >1cm: Follow up at 1,2, 3,5 years ISTHMUS: # of nodules measured in the isthmus: 0 Bilateral neck scanned, no evidence of lymphadenopathy. Numerous nodules seen bilaterally. Largest measured IMPRESSION: Cystic right-sided thyroid nodules and solid left-sided thyroid nodules that meet criteria for follow -up. [facility], , 12/02/2024 4:25 PM
== END | disposition home or self-care (01) ==
LOC: RADUSWWP 15:05
PROVIDERS: ATTEND Otolaryngology
DX: E04.2 Nontoxic multinodular goiter (principal)
CPT/HCPCS: 76536

== ENCOUNTER → 2025-06-13 | Outpatient (CLI) | payer MEDICARE, BC ==
--- NOTE | 2025-06-13 17:54 | MM ---
Reason for Exam: Screening (asymptomatic). Last screening mammogram was performed 12 month(s) ago. Patient History: Menarche at age 9. First Full-Term at age 17. Left ovary removed at age 32. Hysterectomy at age 32. Postmenopausal. Patient has history of breast feeding. Breast cancer, left, age 58. [employer]kenazi [employer]. Previous chest radiation therapy at age 58. 2001, Mastectomy on the Left side. Sister had breast cancer, age 37. Sister had breast cancer, age 77. Prior Study Comparison: 05/16/2022 Right MG 3D diag mammo w/cad RT, [facility]. 05/20/2023 Bilateral MG 3D screening mammo w/cad, [facility]. 05/24/2024 Right MG 3D scr ramakrishna unilateral w/cad., [facility]. Tissue Density: Right: The breasts are heterogeneously dense, which may obscure small masses. Findings: There is no suspicious group of microcalcifications or new suspicious mass in either breast. Overall Assessment: Negative, BI-RAD 1 Management: Screening Mammogram of both breasts in 1 year. Patient should continue monthly self-breast exams. A clinical breast exam by your physician is recommended on an annual basis. This exam should not preclude additional follow-up of suspicious palpable abnormalities. [facility], , 06/13/2025 5:52 PM. Electronically signed and approved by: Michoacano Valentino M.D. Radiologist
== END | disposition home or self-care (01) ==
LOC: RADMAMWWP 13:40
PROVIDERS: ATTEND Emergency Medicine
DX: Z12.31 Encounter for screening mammogram for malignant neoplasm of breast (principal); R92.331 Mammographic heterogeneous density, right breast; Z78.0 Asymptomatic menopausal state; Z80.3 Family history of malignant neoplasm of breast; Z85.3 Personal history of malignant neoplasm of breast
CPT/HCPCS: 77067